=== PATIENT | male | born 1975 | race Caucasian/White ===

== ENCOUNTER → 2016-05-20 | Day surgery (SDC) | payer OTHER ==
[2016-05-16 14:37] VITALS: Ht 180.3 cm; Wt 95.5 kg
[~2016-05-20] VITALS: Ht 180.3 cm; Wt 95.5 kg
[~2016-05-20] MED LIST: ASPEC81 PO; ATOR-26 PO; CLR10 PO; FLUT0.15 NAE; LIDOCAINE HCL 2% 2 ML VIAL (20MG/ML) ONE; LISI-461 PO; MENT1GEL TOP; METO25TA56 PO; MIDAZOLAM HCL 1 MG/ML 2ML VIAL ONE; NAPR1TAB9 PO; ONDANSETRON INJ 2 MG/ML 2 ML VIAL ONE; PANT40TA PO; PROPOFOL IV EMULSION 10 MG/ML 20 ML VIAL IV ONE; RANI300T2 PO; SODIUM CHLORIDE 0.9% 500ML 500 ML IV ONE
--- NOTE | 2016-05-20 10:51 | Endo History and Physical ---
History & Physical Date of Service: May 20, 2016. Chief Complaint: GERD Referring Physician: DR. ABEL DIAZ History of Present Illness 41 yo CM who presents for EGD secondary to GERD. Past Surgical History Hx Cardiac Surgery: Yes (CARDIAC CATH NO STENTS 06/2013) Hx Internal Defibrillator: No Hx Pacemaker: No Hx Abdominal Surgery: No Hx of Implantable Prosthesis: No Hx Post-Op Nausea and Vomiting: No Hx Cancer Surgery: No Hx Thoracic Surgery: No Hx Orthopedic: No Hx Urinary Tract Surgery: No Family History None Social History Smoking Status: Never Smoker Hx Substance Use: No Hx Alcohol Use: No Allergies Coded Allergies: No Known Allergies (Verified , 05/20/16) Current Medications Reported Home Medications Medications Dose Route/Sig Max Daily Dose Days Date Category Flonase Allergy Relief (Fluticasone Propionate (Nasal)) 50 Mcg/Act Spr 2 Sprays ROLY PRN 05/16/16 Reported Claritin (Loratadine) 10 Mg Tab 10 Mg PO PRN 05/16/16 Reported Protonix (Pantoprazole Sodium) 40 Mg Tab 40 Mg PO QAM 05/16/16 Reported Zantac (Ranitidine HCl) 300 Mg Tab 300 Mg PO HS 05/16/16 Reported Aleve (Naproxen) 220 Mg Tab 440 Mg PO PRN 05/16/16 Reported Lopressor (Metoprolol Tartrate) 25 Mg Tab 12.5 Mg PO BID 05/16/16 Reported Zestril (Lisinopril) 10 Mg Tab 10 Mg PO QAM 05/16/16 Reported Lipitor (Atorvastatin Calcium) 80 Mg Tab 80 Mg PO HS 05/16/16 Reported Fast Freeze Pro Style The (Menthol (Topical Analgesic)) 3.5 % Gel 1 Dose TOP PRN 05/16/16 Reported Aspirin EC Low Dose (Aspirin) 81 Mg Ectab 81 Mg PO QAM 30 07/07/14 Rx Vital Signs Weight (Kilograms): 95.45 Height (Feet): 5 Height (Inches): 11 Date Time Temp Pulse Resp B/P Pulse Ox O2 Delivery O2 Flow Rate FiO2 05/20/16 10:15 36.7 61 16 132/79 99 Room Air Physical Exam General Appearance: WD/WN, no apparent distress Respiratory/Chest: Auscultation: breath sounds normal Cardiovascular: Heart Auscultation: RRR Abdomen: Bowel Sounds: normal Inspection & Palpation: soft, non-distended, no tenderness, guarding & rebound Assessment and Plan Assessment: 41 yo CM who presents for EGD secondary to GERD. Plan: Proceed with EGD.
--- NOTE | 2016-05-20 11:34 | Discharge Instructions ---
Endoscopy Patient Instructions Date / Procedure(s) Performed May 20, 2016. EGD Allergy Information Coded Allergies: No Known Allergies (Verified , 05/20/16) Discharge Date / Findings May 20, 2016. Gastritis s/p biopsies Mid-esophageal biopsies Medication Instructions Stopped Medication(s): ASPIRIN 05/20/16 OK to resume all medications today as prescribed. Reported Home Medications Medications Dose Route/Sig Max Daily Dose Days Date Category Flonase Allergy Relief (Fluticasone Propionate (Nasal)) 50 Mcg/Act Spr 2 Sprays ROLY PRN 05/16/16 Reported Claritin (Loratadine) 10 Mg Tab 10 Mg PO PRN 05/16/16 Reported Protonix (Pantoprazole Sodium) 40 Mg Tab 40 Mg PO QAM 05/16/16 Reported Zantac (Ranitidine HCl) 300 Mg Tab 300 Mg PO HS 05/16/16 Reported Aleve (Naproxen) 220 Mg Tab 440 Mg PO PRN 05/16/16 Reported Lopressor (Metoprolol Tartrate) 25 Mg Tab 12.5 Mg PO BID 05/16/16 Reported Zestril (Lisinopril) 10 Mg Tab 10 Mg PO QAM 05/16/16 Reported Lipitor (Atorvastatin Calcium) 80 Mg Tab 80 Mg PO HS 05/16/16 Reported Fast Freeze Pro Style The (Menthol (Topical Analgesic)) 3.5 % Gel 1 Dose TOP PRN 05/16/16 Reported Aspirin EC Low Dose (Aspirin) 81 Mg Ectab 81 Mg PO QAM 30 07/07/14 Rx Provider Instructions Activity Restrictions - No exercising or heavy lifting for 24 hours. - Do not drink alcohol the day of the procedure. - Do not drive a car or operate machinery until the day after the procedure. - Do not make any important decisions or sign important papers in 24 hours after the procedure. Following Day: - Return to full activity which may include returning to work/school. Diet Start your diet with liquids and light foods (jello, soup, juice, toast). Then eat your usual diet if not nauseated. Treatment For Common After Affects For mild abdominal pain, bloating, or excessive gas: - Rest - Eat lightly - Lie on right side Follow-Up Information Follow-up with DR. ABEL DIAZ as scheduled Anesthesia Information What You Should Know You have had a procedure that required some medicine to reduce anxiety and discomfort. This treatment is called moderate sedation. After receiving the treatment, you may be sleepy, but you will be able to breathe on your own. The effects of the treatment may last for several hours. Follow these instructions along with Activity/Diet recommendations noted above: * Do NOT do anything where dizziness or clumsiness would be dangerous. * Rest quietly at home today, then you can be up and about tomorrow. * Have a responsible person stay with you the rest of today. * You may have had an I.V. today. If so, you may take the dressing off later today. Recommendations Call your doctor if: * Trouble breathing * Continuous vomiting for more than 24 hours * Temperature above 101 degrees * Severe abdominal pain or bloating * Pain not relieved by pain medicine ordered * There is increased drainage or redness from any incision * A large amount of rectal bleeding greater than 2-3 tablespoons. (If you had a polyp/s removed or have hemorrhoids, a small amount of blood - from the rectum is to be expected.) * You have any unanswered questions or concerns. IN THE EVENT OF A SERIOUS EMERGENCY, GO TO THE NEAREST EMERGENCY ROOM Your discharge instructions were prepared by provider Suresh Oconnell. Patient Instructions Signature Page Eliazar Rudolph Patient (or Guardian) Signature/Date: I have read and understand the instructions given to me by my caregivers. Caregiver/RN/Doctor Signature/Date: The above-named patient and/or guardian has received patient instructions on this date. + Original Patient Signature Page (only) stays with chart. Please make copy for patient.
--- NOTE | 2016-05-20 11:34 | GI REPORT ---
Procedure Date: 05/20/2016 11:03 AM Procedure: Upper GI endoscopy Indications: Gastro-esophageal reflux disease Medicines: Monitored Anesthesia Care Complications: No immediate complications. Estimated Blood Loss: Estimated blood loss: none. Procedure: Pre-Anesthesia Assessment: - Prior to the procedure, a History and Physical was performed, and patient medications and allergies were reviewed. The patient's tolerance of previous anesthesia was also reviewed. The risks and benefits of the procedure and the sedation options and risks were discussed with the patient. All questions were answered, and informed consent was obtained. Prior Anticoagulants: The patient has taken aspirin, last dose was day of procedure. ASA Grade Assessment: II - A patient with mild systemic disease. After reviewing the risks and benefits, the patient was deemed in satisfactory condition to undergo the procedure. After obtaining informed consent, the endoscope was passed under direct vision. Throughout the procedure, the patient's blood pressure, pulse, and oxygen saturations were monitored continuously. The scope was introduced through the mouth, and advanced to the second part of duodenum. The upper GI endoscopy was accomplished without difficulty. The patient tolerated the procedure well. Findings: The examined esophagus was normal. Biopsies were taken with a cold forceps for histology. Localized mild inflammation characterized by erythema was found in the gastric antrum. Biopsies were taken with a cold forceps for histology. The examined duodenum was normal. Impression: - Normal esophagus. Biopsied. - Gastritis. Biopsied. - Normal examined duodenum. Recommendation: - Resume previous diet. - Continue present medications. - Await pathology results. - Return to GI office as previously scheduled. Suresh Oconnell DO 05/20/2016 11:32:36 AM This report has been signed electronically. Note Initiated On: 05/20/2016 11:03 AM
--- NOTE | 2016-05-20 11:52 | Anesthesiology Progress Note ---
Anesthesia Post Op Note Date & Time May 20, 2016 at 11:51 Vital Signs Pain Intensity: 2 Vital Signs Past 12 Hours Date Time Temp Pulse Resp B/P Pulse Ox O2 Delivery O2 Flow Rate FiO2 05/20/16 11:38 62 20 99/51 99 Room Air 05/20/16 10:15 36.7 61 16 132/79 99 Room Air Notes Mental Status: alert / awake / arousable, participated in evaluation Pt Amnestic to Procedure: Yes Nausea / Vomiting: adequately controlled Pain: adequately controlled Airway Patency, RR, SpO2: stable & adequate BP & HR: stable & adequate Hydration State: stable & adequate Anesthetic Complications: no major complications apparent
[2016-05-20 12:11] VITALS: BP 128/82; PULSE 65; O2SAT 98
== END | disposition home or self-care (01) ==
LOC: C.GI 09:49
PROVIDERS: ATTEND Internal Medicine
DX: K29.00 Acute gastritis without bleeding (principal); K21.9 Gastro-esophageal reflux disease without esophagitis

== ENCOUNTER → 2016-07-03 | Outpatient (CLI) | payer OTHER ==
[~2016-07-03] MED LIST changes: -LIDOCAINE HCL 2% 2 ML VIAL (20MG/ML) ONE; -MIDAZOLAM HCL 1 MG/ML 2ML VIAL ONE; -ONDANSETRON INJ 2 MG/ML 2 ML VIAL ONE; -PROPOFOL IV EMULSION 10 MG/ML 20 ML VIAL IV ONE; -SODIUM CHLORIDE 0.9% 500ML 500 ML IV ONE
[2016-07-03 09:56] LABS: ALT/SGPT 26 U/L (12-78); AST/SGOT 16 U/L (15-37); BLOOD UREA NITROGEN 18 mg/dl (7-18); BUN/CREATININE RATIO 16.6 (10-20); CALCIUM 9.1 mg/dl (8.5-10.1); CARBON DIOXIDE 29 mmol/L (21-32); CHLORIDE 105 mmol/L (98-107); GLUCOSE 91 mg/dl (70-99); SODIUM 141 mmol/L (136-145)
[2016-07-03 10:00] LABS: ALB/GLOB RATIO 1.3 (0.9-2); ALKALINE PHOSPHATASE 102 U/L (45-117); CHOLESTEROL 126 mg/dl (0-200); CHOLESTEROL/HDL RATIO 2.3; HDL CHOLESTEROL 55 mg/dl; LDL CHOLESTEROL CALCULATED 61 mg/dl; TRIGLYCERIDES 52 mg/dl (0-150); VERY LOW DENSITY LIPOPROT CALC 10 mg/dl
== END | disposition home or self-care (01) ==
LOC: C.LAB1850 07:48
PROVIDERS: ATTEND Family Medicine
DX: E78.00 Pure hypercholesterolemia, unspecified (principal); I10 Essential (primary) hypertension

== ENCOUNTER → 2016-07-31 | Outpatient (CLI) | payer OTHER ==
--- NOTE | 2016-07-31 13:41 | DIAGNOSTIC IMAGING REPORT ---
NUCLEAR GASTRIC EMPTYING STUDY CLINICAL HISTORY: Epigastric abdominal pain. Chronic gastroesophageal reflux. COMPARISON STUDY: No priors. TECHNIQUE: Following the oral administration of 1.085 mCi of technetium 99m sulfur colloid in egg sandwich and 8 ounces of water, static abdominal images are obtained anteriorly and posteriorly at 0 minutes, 1 hour, 2 hour, and 4 hour time intervals. Gastric emptying was calculated utilizing the geometric mean method. FINDINGS: There is approximately 65% activity remaining at the 1 hour time interval, 25% remaining at the 2 hour time interval (normal is less than 60%), and 4% activity remaining at the 4 hour time interval (normal is less than 10%). IMPRESSION: Findings are consistent with normal gastric emptying for solids. Electronically signed by: Jayson Novoa M.D. 07/31/2016 1:40 PM Dictated Date/Time: 07/31/2016 1:39 PM
== END | disposition home or self-care (01) ==
LOC: C.NUCL 08:19
PROVIDERS: ATTEND Physician Assistant
DX: K21.9 Gastro-esophageal reflux disease without esophagitis (principal); R10.13 Epigastric pain

== ENCOUNTER → 2016-08-13 | Outpatient (CLI) | payer OTHER ==
--- NOTE | 2016-08-13 10:06 | DIAGNOSTIC IMAGING REPORT ---
ABDOMINAL ULTRASOUND, RIGHT UPPER QUADRANT HISTORY: Right upper quadrant abdominal pain. COMPARISON: None. FINDINGS: Liver is sonographically normal. There is no biliary ductal dilatation. No gallstones are present. The pancreatic body is normal. The head and tail are partially obscured. IMPRESSION: No significant abnormality identified within the right upper quadrant. Electronically signed by: David Brizuela M.D. 08/13/2016 10:05 AM Dictated Date/Time: 08/13/2016 9:59 AM
[2016-08-13 10:30] LABS: BASO % 0.5 %; BASO ABS # 0.03 K/uL (0-0.2); COMPLETE YES; HEMATOCRIT 43.1 % (42-52); LYMPH % 27.1 %; LYMPH ABS # 1.48 K/uL (1.2-3.4); MEAN CELL VOLUME 83.9 fL (80-100); MEAN CORPUSCULAR HEMOGLOBIN 29.2 pg (25-34); MEAN CORPUSCULAR HGB CONC 34.8 g/dl (32-36); MEAN PLATELET VOLUME 9.8 fL (7.4-10.4); MONO % 6.9 %; NEUT % 63.5 %; PLATELET COUNT 169 K/uL (130-400); RED BLOOD COUNT 5.14 M/uL (4.7-6.1); WHITE BLOOD COUNT 5.47 K/uL (4.8-10.8)
[2016-08-13 10:46] LABS: BLOOD UREA NITROGEN 22 mg/dl (7-18); CREATININE 0.95 mg/dl (0.60-1.40); GLUCOSE 97 mg/dl (70-99)
[2016-08-13 10:47] LABS: ALT/SGPT 31 U/L (12-78); AMYLASE 46 U/L (25-115); AST/SGOT 14 U/L (15-37); BUN/CREATININE RATIO 23.6 (10-20); CARBON DIOXIDE 31 mmol/L (21-32); CHLORIDE 106 mmol/L (98-107); POTASSIUM 4.2 mmol/L (3.5-5.1); SODIUM 142 mmol/L (136-145)
[2016-08-13 10:51] LABS: ALB/GLOB RATIO 1.1 (0.9-2); ALKALINE PHOSPHATASE 104 U/L (45-117); C-REACTIVE PROTEIN < 0.29 mg/dl (0-0.29)
[2016-08-16 03:35] LABS: IGA SERUM 152 mg/dL (81-463); TIS TRANS IGA 1 U/mL (<4)
== END | disposition home or self-care (01) ==
LOC: C.ULTRBC 08:44
PROVIDERS: ATTEND Physician Assistant
DX: R10.13 Epigastric pain (principal)

== ENCOUNTER → 2016-08-27 | Outpatient (CLI) | payer OTHER ==
[~2016-08-27] MED LIST changes: +SINCALIDE INJ 1.9 MCG in SODIUM CHLORIDE 0.9% 100ML 100 ML IV ONE
--- NOTE | 2016-08-27 12:47 | DIAGNOSTIC IMAGING REPORT ---
NUCLEAR MEDICINE HEPATOBILIARY STUDY WITH EJECTION FRACTION ANALYSIS CLINICAL HISTORY: Epigastric abdominal pain COMPARISON STUDY: Biliary ultrasound dated 08/13/2016 FINDINGS: The patient was injected with 5.5 mCi of technetium 99m Choletec. Sequential anterior images were acquired. Hepatic excretion appeared unremarkable. There is normal patches of activity into small bowel. The gallbladder was first visualized on the 10 minute image. At 1 hour, the patient was administered 1.9 mcg of sincalide utilizing a 30 minute infusion. The gallbladder ejection fraction is normal measuring 59%. IMPRESSION: Normal study. No evidence of cystic duct obstruction. Normal gallbladder ejection fraction of 59%. Electronically signed by: Don Finley M.D. 08/27/2016 12:44 PM Dictated Date/Time: 08/27/2016 12:43 PM
== END | disposition home or self-care (01) ==
LOC: C.NUCL 09:51
PROVIDERS: ATTEND Physician Assistant
DX: R10.13 Epigastric pain (principal)

== ENCOUNTER → 2017-08-07 | Outpatient (CLI) | payer OTHER ==
[~2017-08-07] MED LIST changes: -SINCALIDE INJ 1.9 MCG in SODIUM CHLORIDE 0.9% 100ML 100 ML IV ONE
--- NOTE | 2017-08-07 09:46 | DIAGNOSTIC IMAGING REPORT ---
MRI LUMBAR SPINE W/O CONTRAST CLINICAL HISTORY: M54.5 Intervertebral disc [id number] LOW BACK PAIN. LEFT LEG RADICULOPATHY. REMOTE HISTORY OF T12 FRACTURE. TECHNIQUE: Sagittal and axial T1, T2 and STIR images were obtained. COMPARISON STUDY: No previous studies for comparison. OBSERVATIONS: There are no areas of marrow replacement suspicious for neoplasm. There is an old minor superior endplate T12 compression deformity. Degenerative endplate signal changes are present the L5-S1 level. L1-2: No disc protrusions or extrusions. No evidence of spinal canal or neural foraminal compromise. L2-3: No disc protrusions or extrusions. No evidence of spinal canal or neural foraminal compromise. L3-4: There is a mild circumferential disc bulge. There is no significant spinal or foraminal stenosis. L4-5: There is a left lateral disc bulge.. No evidence of spinal canal or neural foraminal compromise. L5-S1: There is marked disc degeneration. There is a circumferential disc bulge. There is minimal bilateral subforaminal narrowing. The conus medullaris and cauda equina appear normal. IMPRESSION: 1. Mild multilevel spondylitic changes 2. No focal disc herniations identified 3. No evidence of spinal stenosis 4. Minimal bilateral L5-S1 foraminal narrowing Electronically signed by: Don Finley M.D. 08/07/2017 9:44 AM Dictated Date/Time: 08/07/2017 9:40 AM
== END | disposition home or self-care (01) ==
LOC: C.MRI 08:34
PROVIDERS: ATTEND Internal Medicine
DX: M54.5 Low back pain (principal)

== ENCOUNTER 2017-08-19 13:17 | Emergency (ER) | payer OTHER ==
[~2017-08-19] VITALS: Ht 177.8 cm; Wt 96.8 kg
[~2017-08-19 13:17] MED LIST changes: -ASPEC81 PO; +ASPI-320 PO
[2017-08-19 13:35] VITALS: TEMP 36.7; Ht 177.8 cm; Wt 96.8 kg
[2017-08-19] MEDS ORDERED: XYLOCAINE 1%/SOD BICARB 20 ML VIAL INFIL ONE (14:15)
[2017-08-19] MEDS ORDERED: CEPH500C2 PO (14:42)
[2017-08-19] MEDS: DIPHTHERIA/TETANUS/PERTUSSIS 0.5 ML SYR/VIAL IM. ONE ×2 (15:20→15:22)
[2017-08-19 15:27] VITALS: BP 128/78; PULSE 64; O2SAT 99
[2017-08-19] MEDS ORDERED: DIPHTHERIA/TETANUS/PERTUSSIS 0.5 ML SYR/VIAL IM. ONE (15:30)
--- NOTE | 2017-08-20 07:03 | EMERGENCY ROOM VISIT NOTE ---
ED Visit Note First contact with patient: 13:48 Chief Complaint: Head injury. History of Present Illness: Mr. Rudolph is a 24-year-old [place] male who ambulates into the ED complaining of a head injury. Patient reports a small branch fell out of a tree and struck him in the head. He reports at the time of the injury he did not have a loss of consciousness and since the injury he has having no signs of head injury including headache, abnormal neurological symptoms, vomiting. The branch he reports was small in size but could not give me an exact measurement. Associated with the injury he did sustain a laceration to the right parietal area. Associated with that he reports she has a mild stinging pain in the area the laceration. He rates his discomfort 2/10. His pain is nonradiating. His pain worsens with palpation. He has not identified any alleviating factors related to the pain. He has not taken medication for pain prior to arrival at the hospital. He denies any associated symptoms. Additionally just prior to discharge patient reports he was going to see his primary care provider today but was missed his appointment and he requested that I look at his forearms. He reports over the last couple of days he has noted increasing redness over the anterior aspect of both forearms with prominence on the right. He denies any recent trauma to the area but does reports that he was shaving sheep the other day. He reports both of these areas are tender to palpation and are warm to the touch. He reports there were both initially areas were minimally erythematous but has gotten increasingly erythematous and has grown in size. He denies any associated symptoms with these areas of erythema including pain, fevers, elbow pain, wrist pain, arm weakness/numbness/tingling. Review of Systems: As noted above in history of present illness. Past Medical History: GERD, hypertension, kidney stones, dyslipidemia. Current Medications: Medications Dose Route/Sig Max Daily Dose Days Date Category Flonase Allergy Relief (Fluticasone Propionate (Nasal)) 50 Mcg/Act Spr 2 Sprays ROLY PRN 05/16/16 Reported Claritin (Loratadine) 10 Mg Tab 10 Mg PO PRN 05/16/16 Reported Protonix (Pantoprazole Sodium) 40 Mg Tab 40 Mg PO QAM 05/16/16 Reported Zantac (Ranitidine HCl) 300 Mg Tab 300 Mg PO HS 05/16/16 Reported Aleve (Naproxen) 220 Mg Tab 440 Mg PO PRN 05/16/16 Reported Lopressor (Metoprolol Tartrate) 25 Mg Tab 12.5 Mg PO BID 05/16/16 Reported Zestril (Lisinopril) 10 Mg Tab 10 Mg PO QAM 05/16/16 Reported Lipitor (Atorvastatin Calcium) 80 Mg Tab 80 Mg PO HS 05/16/16 Reported Fast Freeze Pro Style The (Menthol (Topical Analgesic)) 3.5 % Gel 1 Dose TOP PRN 05/16/16 Reported Aspirin EC Low Dose (Aspirin) 81 Mg Ectab 81 Mg PO QAM 30 07/07/14 Rx Allergies to Medications: Patient denies. Social History: Patient is currently employed; he feels safe in his home environment; he denies tobacco and alcohol use. Tetanus Immunization Status: Patient reports greater than 10 years Physical Examination: Vital Signs: Date Time Temp Pulse Resp B/P (MAP) Pulse Ox O2 Delivery O2 Flow Rate FiO2 08/19/17 15:27 64 20 128/78 99 08/19/17 14:41 69 18 131/74 100 Room Air 08/19/17 13:35 36.7 74 20 143/99 98 Room Air GENERAL: 42-year-old male in no acute distress, nontoxic-appearing, afebrile and hemodynamically stable. NEUROLOGICAL: Awake, alert and oriented to person, place and time. Answering questions appropriately and following commands. Normal gait. Good hand eye coordination. Romberg test negative. Pronator drift test negative. Cranial nerves II through XII grossly intact. Good short-term and long-term recall. SKIN: Warm, dry and pink. Scalp: 2.7 cm full-thickness laceration over the right parietal area. Left Upper Extremity: There is an area of mild erythema with minimal edema over the anterior forearm measuring approximately 14-15 cm consistent with a mild cellulitis. The area is is minimally warm to the touch. There is no open soft tissue injuries. No lymphangitis. Right Upper Extremity: There and it is an area of moderate erythema with moderate swelling over the anterior forearm measuring approximately 20 cm consistent with a moderate cellulitis. This area is warm to the touch. I do not appreciate any open soft tissue injuries. There is no lymphangitis or drainage from the wound there are no palpable fluid collections under the skin. HEENT: Normocephalic. Skull: Soft tissue injury as noted above. There is mild tenderness over his laceration but I do not appreciate any bony deformity or crepitus. There is no raccoons signs or cardenas signs. There is no drainage from the ears of the nostril; there is no hemotympanum. Face: No evidence of soft tissue injury. PERRLA. EOMI without nystagmus. Sclera white and conjunctiva pink. No malocclusion. Airway is patent. No intraoral trauma. Speech is normal and clear. Trachea midline. No jugular venous distention. BACK: No tenderness over the bony cervical and thoracic spine. Full range of motion of the cervical spine peer THORAX: Lungs sounds are clear to auscultation and equal bilaterally with symmetrical chest wall. UPPER: EXTREMITIES: No gross bony deformities. No tenderness in the shoulders, elbows, wrists or hands. Soft tissue cellulitis as noted above. Full range of motion of the elbow and wrist against resistance. Distal pulses, capillary refill and intact sensation to light touch throughout the extremities. No axillary lymphadenopathy. ED Course: Patient is assessed as noted above. Patient's medication list was reviewed. Patient was offered pain medication and refused. Patient was given an Adacel booster. Wound Repair: Complexity: Basic Verbal consent was obtained after the risks and benefits were explained. The skin was prepped with betadine and a sterile field set. Wound edges of the wound was anesthetized with 3.2 ml buffered 1% lidocaine. The wound was explored for foreign bodies and none found. Copious irrigation was performed using sterile saline. With direct pressure the bleeding subsided. Debridement was not performed. The wound edges were approximated using 6 gin. Hemostasis and excellent approximation was achieved. Antibacterial ointment applied. No complications and the patient tolerated the procedure well. Patient was educated about tonight's findings and instructed on his treatment plan; he verbalizes understanding and agreement with this plan. Clinical Impression: Laceration of the to the right parietal scalp. Bilateral forearm cellulitis. Disposition: Patient discharged home in stable condition; prior to departure he was reassessed and subjectively reported he was pain-free. Plan: Laceration Comfort measures, wound care, and signs of infection were discussed with the patient. Patient was educated on signs of head injury. Patient was encouraged to follow-up with primary care provider or return to emergency department for signs of infection and/or staple removal in 10-12 days. Patient was encouraged return to the ED for signs of head injury or any new/ concerning symptoms. Forearm cellulitis Patient was prescribed Keflex and instructed on its use. Patient was encouraged to follow-up with his primary care provider for recheck in 36-48 hours. Patient was encouraged to return to emergency department for increasing redness/ swelling, red streaking, fevers or any new/concerning symptoms.
== END 2017-08-19 15:29 | disposition home or self-care (01) ==
LOC: C.EDB 13:19 → C.EDD 15:29
DX: S01.01XA Laceration without foreign body of scalp, initial encounter (principal); W20.8XXA Other cause of strike by thrown, projected or falling object, initial encounter; L03.113 Cellulitis of right upper limb; L03.114 Cellulitis of left upper limb; K21.9 Gastro-esophageal reflux disease without esophagitis; I10 Essential (primary) hypertension; Z87.442 Personal history of urinary calculi; E78.5 Hyperlipidemia, unspecified; Z23 Encounter for immunization

== ENCOUNTER → 2017-09-02 | Outpatient (CLI) | payer OTHER ==
[2017-09-02 12:43] LABS: ALBUMIN 4.2 gm/dl (3.4-5.0); ALT/SGPT 34 U/L (12-78); AST/SGOT 15 U/L (15-37); BLOOD UREA NITROGEN 22 mg/dl (7-18); CARBON DIOXIDE 31 mmol/L (21-32); CHOLESTEROL 131 mg/dl (0-200); CREATININE 1.09 mg/dl (0.60-1.40); GLUCOSE 94 mg/dl (70-99); POTASSIUM 4.3 mmol/L (3.5-5.1); SODIUM 138 mmol/L (136-145)
[2017-09-02 12:47] LABS: ALKALINE PHOSPHATASE 100 U/L (45-117); LDL CHOLESTEROL CALCULATED 74 mg/dl; TOTAL PROTEIN 7.5 gm/dl (6.4-8.2)
== END | disposition home or self-care (01) ==
LOC: C.LABBFT 09:26
PROVIDERS: ATTEND Internal Medicine
DX: Z00.00 Encounter for general adult medical examination without abnormal findings (principal); E78.00 Pure hypercholesterolemia, unspecified; I10 Essential (primary) hypertension

== ENCOUNTER 2020-03-25 09:24 | Observation (INO) ==
--- NOTE | 2020-03-25 10:13 | Emergency Department Note ---
Impression & Plan Nasal septal abscess, Sinus headache, Fever ED Provider Note NAME: KALEB MARTINEZ JR AGE: 44 SEX: M ARRIVES VIA: Walk-In INFORMANT: Patient, ED PROVIDER(S): Dennis Henderson MD CHIEF COMPLAINT: Headache, fever, bloody nasal discharge. PLAN: Disposition: Admit MEDICAL DECISION MAKING: The patient is a pleasant 44-year-old gentleman with a past medical history of hypertension who presents emergency department for evaluation of fevers and headache that has been evolving since Friday after having stents removed from a recent sinus surgery with Dr. Vega 2 weeks ago. He reports Friday he had stents removed but developed worsening headache with congestion and fevers and was started on Augmentin and he has taken 4 doses thus far. He reports his headache persisted and he had a fever this morning and so contacted his surgeon and was referred to emergency department for evaluation. He reports he has intermittent serosanguineous discharge and sometimes more ash[place] blood that stops without compression and only dabbing with a paper towel. He reports some mild nausea. He denies cough, chest pain, diarrhea, urinary symptoms. He denies any known contacts with individuals diagnosed with COVID-19. He reports he has been remaining at home and has not had any COVID-19 exposures. In particular he reports he was maintaining quarantine prior to his surgery 2 weeks ago and since then and did have a negative COVID-19 test performed before his surgery and prior to his Friday evaluation. On arrival patient uncomfortable no acute distress, afebrile with stable vital signs. He has mild serous discharge with intermittent serosanguineous discharge from his nose. No focal neuro deficits. He has mild frontal and maxillary sinus discomfort. EOMI. No nystamgus. PEARRL. Lungs are clear. Abdomen is benign. WBC, H/H and platelets within normal limits. Chemistry without acidosis. Electrolytes and LFTs unremarkable. Lactate within normal limits. CT of the head negative for acute process. CT of the sinuses demonstrates large peripheral enhancing fluid collection in the mid nasal septum 3.6 x 2.1 cm which could be consistent with abscess versus hematoma. I did review the findings with the patient's ENT surgeon, Dr. Vega, who reviewed the images and evaluated the patient at the bedside and is concerned for abscess given timing since surgery and fevers. Agrees with IV ABX. Given Unasyn. Plan for OR for drainage and recommends to admit for observation overnight. Thus, case was discussed with Dr. Davis, [facility] [place], who will evaluate the patient for admission following OR. Triage Nursing notes reviewed and agree them. Prior medical records reviewed Vital Signs: reviewed and remarkable for no significant abnormalities Differential diagnosis: Viral syndrome, otitis, pharyngitis, pneumonia, influenza, meningitis, urinary tract infection, sepsis, bacteremia, as well as other pathologies. ER treatment provided: See below. Diagnostics interpreted by me: ECG: NSR, 74 bpm, no ectopy, no overt ST elevation or depression, QTC 415, QRS 90. Cardiac Monitoring: An order for continuous cardiac monitoring was placed and demonstrated NSR, 78 bpm, no ectopy, no overt ST elevation or depression. Laboratory studies: See below Imaging studies: HEAD CT NONCONTRAST CT DOSE: HISTORY: Headache. Fever, 2 wks s/p sinus surgery TECHNIQUE: Multiaxial CT images of the head were performed without the use of intravenous contrast. Automated exposure control was utilized for this study. A dose lowering technique was utilized adhering to the principles of ALARA. Comparison: Sinus CT 03/25/2020. Findings: Please refer to the same day sinus CT for further evaluation of the sinus abnormality. The calvarium and skull base are intact. The ventricles and sulci are within normal limits. There is no mass, hematoma, midline shift, or acute infarct. Impression: No acute intracranial abnormality. Please refer to the same day sinus CT for further evaluation of the sinus abnormalities. CT sinus w con HISTORY: Headache, fever, 2 wks s/p sinus surgery TECHNIQUE: Multiaxial CT images of the sinuses were performed and reformatted in the sagittal and coronal plane following the use of intravenous contrast. COMPARISON STUDY: Sinus CT 07/15/2019. FINDINGS: Near complete opacification of the right maxillary sinus and partial opacification of the left maxillary sinus with mucosal thickening and fluid levels. There is near complete opacification of the nasal cavity and moderate mucosal thickening of the ethmoid air cells with near complete opacification. Moderate mucosal thickening within the sphenoid sinuses. There is a peripheral enhancing low density collection at the mid aspect of the nasal septum. This is best seen image 168 and measures 3.6 x 2.1 cm. This could represent an abscess or less likely a septal hematoma. The orbits and pterygopalatine fossa are within normal limits. The nasal septum is fractured posteriorly. The mid nasal septum is absent and completely replaced by the peripheral enhancing fluid collection. This could be due to postoperative change or erosion. The mastoid air cells are clear. Soft tissue swelling within the nose. IMPRESSION: 1. A large peripheral enhancing fluid collection within the mid nasal septum measuring 3.6 x 2.1 cm. This favors an abscess. A septal hematoma could also have a similar appearance. 2. Acute pansinusitis as described above. 3. The mid nasal septum is absent which could be postsurgical or due to erosion from the fluid collection. 4. Fracture through the posterior nasal septum. Consultation(s): Dr. Vega, ENT Dr. Davis, [facility] [place]. HPI: The patient is a pleasant 44-year-old gentleman with a past medical history of hypertension who presents emergency department for evaluation of fevers and headache that has been evolving since Friday after having stents removed from a recent sinus surgery with Dr. Vega 2 weeks ago. He reports Friday he had stents removed but developed worsening headache with congestion and fevers and was started on Augmentin and he has taken 4 doses thus far. He reports his headache persisted and he had a fever this morning and so contacted his surgeon and was referred to emergency department for evaluation. He reports he has intermittent serosanguineous discharge and sometimes more ash[place] blood that stops without compression and only dabbing with a paper towel. He reports some mild nausea. He denies cough, chest pain, diarrhea, urinary symptoms. He denies any known contacts with individuals diagnosed with COVID-19. He reports he has been remaining at home and has not had any COVID-19 exposures. In particular he reports he was maintaining quarantine prior to his surgery 2 weeks ago and since then and did have a negative COVID-19 test performed before his surgery and prior to his Friday evaluation. ROS: See above HPI for pertinent positives & negatives. A total of 10 systems reviewed and were otherwise negative. PAST MEDICAL HISTORY:See Below PAST SURGICAL HISTORY:See Below FAMILY HISTORY:See Below SOCIAL HISTORY:See Below HOME MEDICATIONS:See Below ALLERGIES:See Below VITALS:See Below PHYSICAL EXAMINATION: GENERAL: Awake, alert, uncomfortable-appearing, in no distress HENT: Normocephalic, atraumatic. Oropharynx with dry mucous membranes and otherwise unremarkable. Mild frontal and maxillary sinus discomfort bilaterally. There is fullness of the mid nasal septum right greater than left with scant serosanguinous drainage. EYES: Normal conjunctiva. Sclera non-icteric. EOMI. No nystamgus. PEARRL. NECK: Supple. No nuchal rigidity. FROM. No JVD. RESPIRATORY: Clear to auscultation. CARDIAC: Regular rate, normal rhythm. Extremities warm and well perfused. Pulses equal. ABDOMEN: Soft, non-distended. No tenderness to palpation. No rebound or guarding. No masses. RECTAL: Deferred. MUSCULOSKELETAL: Chest examination reveals no tenderness. The back is symmetrical on inspection without obvious abnormality. There is no CVA tenderness to palpation. No joint edema. LOWER EXTREMITIES: Calves are equal size bilaterally and non-tender. No edema. No discoloration. NEURO: Normal sensorium. No sensory or motor deficits noted. 5/5 strength and SILT x 4 extremities. Cerebellar function intact including [id number], alternating palms, [id number]. SKIN: No rash or jaundice noted. Dennis Henderson MD Past Med/Surg History Medical History Arthritis CAD (coronary artery disease) Degenerative disc disease Gastroesophageal reflux Hyperlipidemia Hypertension Otalgia of both ears Surgical History History of cardiac cath NO STENTS History of esophagogastroduodenoscopy (EGD) [place] teeth removed Family History Father Coronary heart disease Heart disease Hyperlipidemia Brother Coronary heart disease Hyperlipidemia Grandmother No problems noted. Mother Heart disease Diabetes Other Hypertension Denies family history of Prostate cancer Colorectal cancer Social History Smoking Status: Never smoker Second Hand Exposure: No; Do You Dip or Chew Tobacco: No; Hx Alcohol Use: No Hx Substance Use: No Preferred Language: Guinean Communication Ability: Effective Visual Impairment: No Limitations Hearing Ability: Normal Foreman Or Supervisor And Operator Required: No Beliefs That Will Affect Care: None marital status: Single Current Living Situation: Family Current Living Situation Comment: 2 sisters. current occupational status: employed Other Information That Helps Us Care for You: No Feels Safe at Home: Yes Childhood Exposure to Second-Hand Smoke: No caffeine: Yes during the past year weight has: remained stable Dental Care, Regularly: Yes Physical Activity Frequency: Daily Physical Activity Frequency Comment: self employed, [employer] Seatbelt Use: always Assistive Devices: Glasses Allergies Allergies Allergy/AdvReac Type Severity Reaction Status Date / Time meloxicam Allergy Severe severe rash Verified 03/25/20 10:51 Home Meds Home Medications Medication Instructions Recorded Confirmed aspirin 81 mg tablet,delayed 81 mg PO QAM 01/29/18 03/25/20 release naproxen sodium 220 mg capsule 440 mg PO BID PRN cap 01/29/18 03/25/20 famotidine 20 mg tablet 20 mg PO HS tab 07/06/19 03/25/20 atorvastatin [Lipitor] 80 mg PO HS 03/25/20 03/25/20 lisinopril 10 mg PO QAM 03/25/20 03/25/20 loratadine [Claritin] 10 mg PO QAM 03/25/20 03/25/20 Previous Rx's Medication Instructions Recorded cyclobenzaprine 5 mg tablet See Rx Instructions PO TID PRN #30 02/23/19 tab metoprolol tartrate 25 mg tablet 12.5 mg PO BID #90 tab 11/23/19 omeprazole 20 mg tablet,delayed 20 mg PO BID #60 tab 12/13/19 release ipratropium bromide 0.03 % nasal 2 spray INTRANASAL BID #30 ml 01/18/20 spray hydrocodone-acetaminophen [[place]] 1 tab PO Q6H PRN #20 tab 03/09/20 amoxicillin 875 mg-potassium 1 tab PO BID #20 tab 03/23/20 clavulanate 125 mg tablet Results & Data (ED) Vital Signs Vital Signs - 24 hr 03/25/20 09:27 03/25/20 10:20 03/25/20 11:24 Temperature 36.7 C Temperature Source Oral Pulse Rate 82 Pulse Rate [Apical] 80 Pulse Rate from SpO2 Sensor Pulse Rhythm [Apical] Regular Pulse Strength [Apical] Respiratory Rate 20 18 Respiratory Effort / Characteristics Non-Labored Non-Labored Spontaneous Non-Labored Respiratory Depth Normal Blood Pressure 161/96 H Blood Pressure [Left Arm] Blood Pressure [Right Arm] 131/87 Blood Pressure Mean 117 Blood Pressure Mean [Left Arm] Blood Pressure Mean [Right Arm] 101 Blood Pressure Position [Left Arm] Pulse Oximetry 97 96 Oxygen Delivery Method Room Air Room Air Oxygen Flow Rate Sepsis Recent Fever Within 48 Hours No Sepsis New/Unexplained Change in Mental Status N/A Sepsis Action Taken by Nursing No Action Required 03/25/20 12:00 03/25/20 12:30 03/25/20 13:30 Temperature Temperature Source Pulse Rate 69 69 82 Pulse Rate [Apical] Pulse Rate from SpO2 Sensor 69 72 Pulse Rhythm [Apical] Pulse Strength [Apical] Respiratory Rate 17 14 15 Respiratory Effort / Characteristics Respiratory Depth Blood Pressure 137/89 131/91 130/82 Blood Pressure [Left Arm] Blood Pressure [Right Arm] Blood Pressure Mean 100 97 96 Blood Pressure Mean [Left Arm] Blood Pressure Mean [Right Arm] Blood Pressure Position [Left Arm] Pulse Oximetry 97 99 Oxygen Delivery Method Oxygen Flow Rate Sepsis Recent Fever Within 48 Hours Sepsis New/Unexplained Change in Mental Status Sepsis Action Taken by Nursing 03/25/20 14:00 03/25/20 15:04 03/25/20 17:12 Temperature 36.3 C L Temperature Source Temporal Artery Scan Pulse Rate 76 Pulse Rate [Apical] 78 89 Pulse Rate from SpO2 Sensor Pulse Rhythm [Apical] Regular Pulse Strength [Apical] Normal Respiratory Rate 14 20 18 Respiratory Effort / Characteristics Non-Labored Spontaneous Respiratory Depth Normal Blood Pressure 129/88 Blood Pressure [Left Arm] 157/91 H Blood Pressure [Right Arm] 139/82 Blood Pressure Mean 99 Blood Pressure Mean [Left Arm] 113 Blood Pressure Mean [Right Arm] 101 Blood Pressure Position [Left Arm] Lying Pulse Oximetry 98 95 96 Oxygen Delivery Method Nasal Cannula Oxygen Flow Rate 3 Sepsis Recent Fever Within 48 Hours Sepsis New/Unexplained Change in Mental Status Sepsis Action Taken by Nursing 03/25/20 17:20 03/25/20 17:30 Temperature Temperature Source Pulse Rate Pulse Rate [Apical] 85 91 H Pulse Rate from SpO2 Sensor Pulse Rhythm [Apical] Regular Regular Pulse Strength [Apical] Normal Normal Respiratory Rate 19 15 Respiratory Effort / Characteristics Non-Labored Spontaneous Non-Labored Spontaneous Respiratory Depth Normal Normal Blood Pressure Blood Pressure [Left Arm] 156/97 H 156/97 H Blood Pressure [Right Arm] Blood Pressure Mean Blood Pressure Mean [Left Arm] 116 116 Blood Pressure Mean [Right Arm] Blood Pressure Position [Left Arm] Lying Lying Pulse Oximetry 100 100 Oxygen Delivery Method Nasal Cannula Nasal Cannula Oxygen Flow Rate 2 2 Sepsis Recent Fever Within 48 Hours Sepsis New/Unexplained Change in Mental Status Sepsis Action Taken by Nursing Laboratory Data Attestation: I reviewed the patient's lab results. Result diagrams: 03/25/20 11:29 03/25/20 11: Lab Results 03/25/20 03/25/20 03/25/20 Range/Units 11:29 11:29 11:29 WBC 7.02 (4.8-10.8) K/uL RBC 5.01 (4.7-6.1) M/uL Hgb 14.6 (14.0-18.0) g/dL Hct 42.8 (42-52) % MCV 85.4 (80-100) fL MCH 29.1 (25-34) pg MCHC 34.1 (32-36) g/dL RDW Std Deviation 43.3 (36.4-46.3) fL RDW Coeff of Dilan 13.8 (11.5-14.5) % Plt Count 179 (130-400) K/uL MPV 9.0 (7.4-10.4) fL Immature Gran % (Auto) 0.1 % Neut % (Auto) 73.1 % Lymph % (Auto) 16.4 % [place] % (Auto) 9.5 % Eos % (Auto) 0.6 % Baso % (Auto) 0.3 % Neut # (Auto) 5.13 (1.4-6.5) K/uL Lymph # (Auto) 1.15 L (1.2-3.4) K/uL [place] # (Auto) 0.67 H (0.11-0.59) K/uL Eos # (Auto) 0.04 (0-0.5) K/uL Baso # (Auto) 0.02 (0-0.2) K/uL Immature Gran # (Auto) 0.01 (0.00-0.02) K/uL PT 11.3 (9.0-12.0) Seconds INR 1.1 (0.9-1.1) APTT 28.4 (21.0-31.0) Seconds PTT Ratio 1.0 Sodium 135 L (136-145) mmol/L Potassium 4.0 (3.5-5.1) mmol/L Chloride 102 (98-107) mmol/L Carbon Dioxide 29 (21-32) mmol/L Anion Gap 4.0 (3-11) BUN 10 (7-18) mg/dl Creatinine 0.96 (0.6-1.4) mg/dl Est Cr Clr Drug Dosing 117.8 ml/min Est GFR ( Amer) 111.0 Est GFR (Non-Af Amer) 95.7 BUN/Creatinine Ratio 10.4 (10-20) Glucose 105 H (70-99) mg/dl Lactate (0.4-2.0) mmol/L Calcium 9.4 (8.5-10.1) mg/dl Phosphorus 3.6 (2.5-4.9) mg/dl Magnesium 2.3 (1.8-2.4) mg/dl Total Bilirubin 0.6 (0.2-1) mg/dl AST 9 L (15-37) U/L ALT 28 (12-78) U/L Alkaline Phosphatase 193 H (45-117) U/L Total Protein 8.7 H (6.4-8.2) gm/dl Albumin 3.5 (3.4-5.0) gm/dl Globulin 5.2 H (2.5-4.0) gm/dl Albumin/Globulin Ratio 0.7 L (0.9-2) COVID-19 Eval Order SARS-CoV-2, RNA, NAAT (NEGATIVE) 03/25/20 03/25/20 03/25/20 Range/Units 12:02 14:31 14:31 WBC (4.8-10.8) K/uL RBC (4.7-6.1) M/uL Hgb (14.0-18.0) g/dL Hct (42-52) % MCV (80-100) fL MCH (25-34) pg MCHC (32-36) g/dL RDW Std Deviation (36.4-46.3) fL RDW Coeff of Dilan (11.5-14.5) % Plt Count (130-400) K/uL MPV (7.4-10.4) fL Immature Gran % (Auto) % Neut % (Auto) % Lymph % (Auto) % [place] % (Auto) % Eos % (Auto) % Baso % (Auto) % Neut # (Auto) (1.4-6.5) K/uL Lymph # (Auto) (1.2-3.4) K/uL [place] # (Auto) (0.11-0.59) K/uL Eos # (Auto) (0-0.5) K/uL Baso # (Auto) (0-0.2) K/uL Immature Gran # (Auto) (0.00-0.02) K/uL PT (9.0-12.0) Seconds INR (0.9-1.1) APTT (21.0-31.0) Seconds PTT Ratio Sodium (136-145) mmol/L Potassium (3.5-5.1) mmol/L Chloride (98-107) mmol/L Carbon Dioxide (21-32) mmol/L Anion Gap (3-11) BUN (7-18) mg/dl Creatinine (0.6-1.4) mg/dl Est Cr Clr Drug Dosing ml/min Est GFR ( Amer) Est GFR (Non-Af Amer) BUN/Creatinine Ratio (10-20) Glucose (70-99) mg/dl Lactate 0.8 (0.4-2.0) mmol/L Calcium (8.5-10.1) mg/dl Phosphorus (2.5-4.9) mg/dl Magnesium (1.8-2.4) mg/dl Total Bilirubin (0.2-1) mg/dl AST (15-37) U/L ALT (12-78) U/L Alkaline Phosphatase (45-117) U/L Total Protein (6.4-8.2) gm/dl Albumin (3.4-5.0) gm/dl Globulin (2.5-4.0) gm/dl Albumin/Globulin Ratio (0.9-2) COVID-19 Eval Order Covid19 [facility] SARS-CoV-2, RNA, NAAT NEGATIVE (NEGATIVE) Administered Medications Atorvastatin Calcium (Atorvastatin 40 Mg Tab) 80 mg PO HS JOVAN Stop: 04/24/20 20:59 Last Admin: 03/25/20 21:19 Dose: 80 mg Documented by: [id number] Famotidine (Famotidine 20 Mg Tab) 20 mg PO HS JOVAN Stop: 04/24/20 20:59 Last Admin: 03/25/20 21:19 Dose: 20 mg Documented by: [id number] Metoprolol Tartrate (Metoprolol Tartrate 25 Mg Tab) 12.5 mg PO BID JOVAN Stop: 04/24/20 20:59 Last Admin: 03/25/20 21:18 Dose: 12.5 mg Documented by: [id number] Pantoprazole Sodium (Pantoprazole 40 Mg Tab) 40 mg PO BID JOVAN Stop: 04/24/20 20:59 Last Admin: 03/25/20 21:18 Dose: 40 mg Documented by: [id number] Discontinued Medications Bacitracin (Bacitracin Inj 50,000 Unit Vial) Confirm Administered Dose 50,000 units .ROUTE .STK-MED ONE Stop: 03/25/20 15:41 Last Admin: 03/25/20 16:01 Dose: 50,000 units Documented by: [id number] Dexamethasone (Dexamethasone Sod Inj 10 Mg/Ml Vial) 10 mg IV NOW ONE Stop: 03/25/20 10:21 Last Admin: 03/25/20 11:32 Dose: 10 mg Documented by: [id number] Diphenhydramine HCl (Diphenhydramine 50 Mg/Ml Vial) 25 mg IV NOW STA Stop: 03/25/20 10:21 Last Admin: 03/25/20 11:32 Dose: 25 mg Documented by: [id number] Epinephrine HCl (Epinephrine Hcl Inj 1 Mg/Ml 1ml Syringe) Confirm Administered Dose 1 mg .ROUTE .STK-MED ONE Stop: 03/25/20 14:45 Last Admin: 03/25/20 16:01 Dose: 1 mg Documented by: [id number] Epinephrine HCl (Epinephrine Hcl Inj 1 Mg/Ml 1ml Syringe) Confirm Administered Dose 2 mg .ROUTE .STK-MED ONE Stop: 03/25/20 16:06 Last Admin: 03/25/20 16:12 Dose: 2 mg Documented by: [id number] Epinephrine HCl (Epinephrine Hcl Inj 1 Mg/Ml 1ml Syringe) Confirm Administered Dose 3 mg .ROUTE .STK-MED ONE Stop: 03/25/20 16:11 Last Admin: 03/25/20 16:12 Dose: 3 mg Documented by: [id number] Gelatin (Gelatin Sponge 12-7mm) Confirm Administered Dose 1 ea .ROUTE .STK-MED ONE Stop: 03/25/20 14:44 Last Admin: 03/25/20 16:59 Dose: Not Given Documented by: [id number] Sodium Chloride (Nss 1000ml) 2,000 mls @ 999 mls/hr IV .Q2H1M ONE Stop: 03/25/20 12:20 Last Infusion: 03/25/20 13:58 Dose: 0 mls/hr Documented by: [id number] Admin: 03/25/20 11:32 Dose: 999 mls/hr Documented by: [id number] Acetaminophen (Ofirmev) 1,000 mg in 100 mls @ 400 mls/hr IV NOW STA Stop: 03/25/20 10:34 Last Infusion: 03/25/20 11:56 Dose: 0 mls/hr Documented by: [id number] Admin: 03/25/20 11:32 Dose: 400 mls/hr Documented by: [id number] Ampicillin Sodium/Sulbactam Sodium 3,000 mg/ Sodium Chloride 108 mls @ 200 mls/hr IV NOW STA; Protocol Stop: 03/25/20 14:40 Last Infusion: 03/25/20 14:59 Dose: 0 mls/hr Documented by: [id number] Admin: 03/25/20 14:26 Dose: 200 mls/hr Documented by: [id number] Cefazolin Sodium (Ancef 2000mg) 2,000 mg in 15 mls @ 3.75 mls/min IV ONCE ONE Stop: 03/25/20 16:06 Last Admin: 03/25/20 16:06 Dose: 3.75 mls/min Documented by: [id number] Ioversol (Ioversol 100ml) 94 ml IV ONCE ONE Stop: 03/25/20 12:53 Last Admin: 03/25/20 12:52 Dose: 94 ml Documented by: [id number] Lidocaine HCl (Lidocaine 4% Inh Soln 4 Ml Btl) Confirm Administered Dose 4 ml .ROUTE .STK-MED ONE Stop: 03/25/20 14:44 Last Admin: 03/25/20 16:00 Dose: 4 ml Documented by: [id number] Lidocaine/Epinephrine (Lidocaine/Epine 2% 1:100,000 20ml) Confirm Administered Dose 20 ml .ROUTE .STK-MED ONE Stop: 03/25/20 14:43 Last Admin: 03/25/20 16:59 Dose: 2 ml Documented by: [id number] Metoclopramide HCl (Metoclopramide Hcl Inj 5 Mg/Ml 2 Ml Vial) 10 mg IV NOW STA Stop: 03/25/20 10:21 Last Admin: 03/25/20 11:32 Dose: 10 mg Documented by: [id number] Discharge Plan Visit Data Chief Complaint: Nasal Injury/Pain Stated Complaint: headache, fever, sinus pressure, hypertension ED Provider: Dennis Henderson Discharge Problem: Nasal septal abscess, Sinus headache, Fever Patient Disposition: Still a Patient Discharge Instructions Interventions: ED Discharge Assessment Last Done: 03/25/20 15:06 Discharge Problem: Fever Qualifiers: Fever type: unspecified Qualified Code(s): R50.9 - Fever, unspecified
[2020-03-25] MEDS ORDERED: diphenhydrAMINE 50 MG/ML VIAL IV STA (10:20)
[2020-03-25] MEDS ORDERED: SODIUM CHLORIDE 0.9% 1000ML 2,000 ML IV ONE (10:20)
[2020-03-25] MEDS ORDERED: DEXAMETHASONE SOD INJ 10 MG/ML VIAL IV ONE (10:20)
[2020-03-25] MEDS ORDERED: METOCLOPRAMIDE HCL INJ 5 MG/ML 2 ML VIAL IV STA (10:20)
[2020-03-25] MEDS ORDERED: ACETAMINOPHEN 1,000 MG/100 ML VIAL IV STA (10:20)
--- NOTE | 2020-03-25 11:02 | XRay Report ---
XR chest 1V portable HISTORY: SEPSIS COMPARISON: Chest 07/10/2014. FINDINGS: The lungs are clear. Cardiac silhouette is normal in size. No pleural effusions. No pneumot horax. IMPRESSION: No acute process. ACT 112: Negative or not required by law. Electronically signed by: Roberto Panchal M.D. 03/25/2020 11:01 AM
[2020-03-25 11:38] LABS: Basophils # (auto) 0.02 K/uL (0-0.2); Basophils % (auto) 0.3 %; Eosinophils # (auto) 0.04 K/uL (0-0.5); Eosinophils % (auto) 0.6 %; Hematocrit (blood only) 42.8 % (42-52); Hemoglobin 14.6 g/dL (14.0-18.0); Immature Granulocytes # (auto) 0.01 K/uL (0.00-0.02); Immature Granulocytes % (auto) 0.1 %; Lymphocytes # (auto) 1.15 K/uL (1.2-3.4); Lymphocytes % (auto) 16.4 %; Mean Corpuscular Hemoglobin 29.1 pg (25-34); Mean Corpuscular Hgb Conc 34.1 g/dL (32-36); Mean Corpuscular Volume 85.4 fL (80-100); Monocytes # (auto) 0.67 K/uL (0.11-0.59); Monocytes % (auto) 9.5 %; Neutrophils # (auto) 5.13 K/uL (1.4-6.5); Neutrophils % (auto) 73.1 %; Platelet Count 179 K/uL (130-400); RDW Coefficient of Variation 13.8 % (11.5-14.5); RDW Standard Deviation 43.3 fL (36.4-46.3); Red Blood Count 5.01 M/uL (4.7-6.1); White Blood Count 7.02 K/uL (4.8-10.8)
[2020-03-25 11:48] LABS: INR 1.1 (0.9-1.1); Partial Thromboplastin Time 28.4 Seconds (21.0-31.0); Prothrombin Time 11.3 Seconds (9.0-12.0)
[2020-03-25 11:58] LABS: Albumin Level 3.5 gm/dl (3.4-5.0); BUN Creatinine Ratio 10.4 (10-20); Calcium 9.4 mg/dl (8.5-10.1); Creatinine Clr Calc Pharmacy 117.8 ml/min; Est GFR (Non-African American) 95.7; Magnesium 2.3 mg/dl (1.8-2.4)
[2020-03-25 12:00] LABS: Albumin Globulin Ratio 0.7 (0.9-2); Bilirubin,Total 0.6 mg/dl (0.2-1); Globulin 5.2 gm/dl (2.5-4.0); Phosphorus 3.6 mg/dl (2.5-4.9); Total Protein 8.7 gm/dl (6.4-8.2)
[2020-03-25] MEDS ORDERED: IOVERSOL 100ml IV ONE (12:52)
--- NOTE | 2020-03-25 13:14 | CT Scan Report ---
CT sinus w con HISTORY: Headache, fever, 2 wks s/p sinus surgery TECHNIQUE: Multiaxial CT images of the sinuses were performed and reformatted in the sagittal and cor onal plane following the use of intravenous contrast. COMPARISON STUDY: Sinus CT 07/15/2019. FINDINGS: Near complete opacification of the right maxillary sinus and partial opacification of the l eft maxillary sinus with mucosal thickening and fluid levels. There is near complete opacification of the nasal cavity and moderate mucosal thickening of the ethmoid air cells with near complete opacifi cation. Moderate mucosal thickening within the sphenoid sinuses. There is a peripheral enhancing low density collection at the mid aspect of the nasal septum. This is best seen image 168 and measures 3. 6 x 2.1 cm. This could represent an abscess or less likely a septal hematoma. The orbits and pterygop alatine fossa are within normal limits. The nasal septum is fractured posteriorly. The mid nasal sept um is absent and completely replaced by the peripheral enhancing fluid collection. This could be due to postoperative change or erosion. The mastoid air cells are clear. Soft tissue swelling within the nose. IMPRESSION: 1. A large peripheral enhancing fluid collection within the mid nasal septum measuring 3.6 x 2.1 cm. This favors an abscess. A septal hematoma could also have a similar appearance. 2. Acute pansinusitis as described above. 3. The mid nasal septum is absent which could be postsurgical or due to erosion from the fluid collec tion. 4. Fracture through the posterior nasal septum. ACT 112: Negative or not required by law. Electronically signed by: Roberto Panchal M.D. 03/25/2020 1:12 PM
--- NOTE | 2020-03-25 13:22 | CT Scan Report ---
HEAD CT NONCONTRAST CT DOSE: HISTORY: Headache. Fever, 2 wks s/p sinus surgery TECHNIQUE: Multiaxial CT images of the head were performed without the use of intravenous contrast. A utomated exposure control was utilized for this study. A dose lowering technique was utilized adheri ng to the principles of ALARA. Comparison: Sinus CT 03/25/2020. Findings: Please refer to the same day sinus CT for further evaluation of the sinus abnormality. The calvarium and skull base are intact. The ventricles and sulci are within normal limits. There is no m ass, hematoma, midline shift, or acute infarct. Impression: No acute intracranial abnormality. Please refer to the same day sinus CT for further evaluation of th e sinus abnormalities. ACT 112: Negative or not required by law. Electronically signed by: Roberto Panchal M.D. 03/25/2020 1:21 PM
[2020-03-25] MEDS ORDERED: AMPICILLIN/SULBACTAM SOD 3,000 MG in 0.9 % SODIUM CHLORIDE 100 ML IV STA (14:08)
[2020-03-25] MEDS ORDERED: MIDAZOLAM HCL 1 MG/ML 2ML VIAL ONE (14:31)
[2020-03-25] MEDS ORDERED: fentaNYL citrate 100 MCG/2 ML VIAL ONE (14:31)
[2020-03-25] MEDS ORDERED: DEXAMETHASONE SOD INJ 4 MG/ML VIAL ONE (14:31)
[2020-03-25] MEDS ORDERED: PROPOFOL IV EMULSION 10 MG/ML 20 ML VIAL IV ONE (14:31)
[2020-03-25] MEDS ORDERED: ONDANSETRON INJ 2 MG/ML 2 ML VIAL ONE (14:31)
[2020-03-25] MEDS ORDERED: LIDOCAINE HCL 2% 2 ML VIAL/AMP(20MG/ML) INFIL ONE (14:31)
[2020-03-25] MEDS ORDERED: LIDOCAINE/EPINE 2% 1:100,000 20ML ONE (14:42)
[2020-03-25] MEDS ORDERED: GELATIN SPONGE 12-7MM ONE (14:43)
[2020-03-25] MEDS ORDERED: LIDOCAINE 4% INH SOLN 4 ML BTL ONE (14:43)
[2020-03-25] MEDS ORDERED: EpINEphrine HCL INJ 1 MG/ML 1ML SYRINGE ONE ×3 (14:44→16:10)
--- NOTE | 2020-03-25 15:13 | History & Physical Report ---
Date of Service March 25, 2020 Assessment & Plan (1) Nasal septal abscess: Will go to the OR for I&D by Dr Vega. Antibiotics - IV Cefazolin per ENT recommendations (2) CAD (coronary artery disease): Continue ASA, metoprolol, Atorvastatin (3) Hyperlipidemia: Atorvastatin 80mg PO daily (4) Gastroesophageal reflux: Switch omeprazole to pantoprazole per hospital formulary (5) Hypertension: Continue lisinopril 10mg PO QPM Admission and Anticipated Discharge Date Admission Date: 03/25/2020 History of Present Illness Chief Complaint: Nasal congestion, fever, chills Primary Care Provider: Gerri Brizuela MD Eliazar Rudolph is a 44 year old female who presents to the ER with fevers, ch ills, headache and nasal congestion. He has a recent history of septoplasty/endoscopic sinus surgery on March 09. He developed a fever with increased nasal congestion with bleeding 2 days ago. Fever max 102.5 yesterday. He was started on Augmentin by his ENT surgeon 2 days ago in the evening. Given fevers yesterday he called his ENT surgeon this morning and was advised to go to the ER. CT showed 3.6x2.1cm abscess. ER physician discussed case with Dr Vega and plan to go to surgery from the ER. Medicine consulted for admission. He denies any cough, loss of taste or smell or known COVID-19 exposure. Allergies Allergy/AdvReac Type Severity Reaction Status Date / Time meloxicam Allergy Severe severe rash Verified 03/25/20 10:51 Home Medications Home Medications Medication Instructions Recorded Confirmed Type aspirin 81 mg tablet,delayed 81 mg PO QAM 01/29/18 03/25/20 History release naproxen sodium 220 mg capsule 440 mg PO BID PRN cap 01/29/18 03/25/20 History cyclobenzaprine 5 mg tablet See Rx Instructions PO TID PRN #30 02/23/19 03/25/20 Rx tab famotidine 20 mg tablet 20 mg PO HS tab 07/06/19 03/25/20 History metoprolol tartrate 25 mg tablet 12.5 mg PO BID #90 tab 11/23/19 03/25/20 Rx omeprazole 20 mg tablet,delayed 20 mg PO BID #60 tab 12/13/19 03/25/20 Rx release ipratropium bromide 0.03 % nasal 2 spray INTRANASAL BID #30 ml 01/18/20 03/25/20 Rx spray hydrocodone-acetaminophen [[place]] 1 tab PO Q6H PRN #20 tab 03/09/20 03/25/20 Rx amoxicillin 875 mg-potassium 1 tab PO BID #20 tab 03/23/20 03/25/20 Rx clavulanate 125 mg tablet atorvastatin [Lipitor] 80 mg PO HS 03/25/20 03/25/20 History lisinopril 10 mg PO QAM 03/25/20 03/25/20 History loratadine [Claritin] 10 mg PO QAM 03/25/20 03/25/20 History Past Med/Surg History Medical History Arthritis CAD (coronary artery disease) Degenerative disc disease Gastroesophageal reflux Hyperlipidemia Hypertension Otalgia of both ears Surgical History History of cardiac cath NO STENTS History of esophagogastroduodenoscopy (EGD) Diamond teeth removed Family History Father Coronary heart disease Heart disease Hyperlipidemia Brother Coronary heart disease Hyperlipidemia Grandmother No problems noted. Mother Heart disease Diabetes Other Hypertension Denies family history of Prostate cancer Colorectal cancer Social History Smoking Status: Never smoker Second Hand Exposure: No; Do You Dip or Chew Tobacco: No; Hx Alcohol Use: No Hx Substance Use: No Preferred Language: Cambodian Communication Ability: Effective Visual Impairment: No Limitations Hearing Ability: Normal Circulation Manager Required: No Beliefs That Will Affect Care: None marital status: Single Current Living Situation: Family Current Living Situation Comment: 2 sisters. current occupational status: employed Other Information That Helps Us Care for You: No Feels Safe at Home: Yes Childhood Exposure to Second-Hand Smoke: No caffeine: Yes during the past year weight has: remained stable Dental Care, Regularly: Yes Physical Activity Frequency: Daily Physical Activity Frequency Comment: self employed, [employer] Seatbelt Use: always Assistive Devices: None Review of Systems Review of Systems: All systems reviewed & are unremarkable except as noted in HPI & below Physical Exam Constitutional: well developed and well nourished; no acute distress Eyes: + anicteric sclerae; normal pupil size Neck: trachea midline, no thyromegaly Respiratory: normal respiratory effort, lungs clear to auscultation Cardiovascular: RRR, no murmur, no edema Gastrointestinal (Abdomen): normal bowel sounds, soft, nontender, no hepatosplenomegaly Results & Data Results & Data ([facility]) Vital Signs (Past 12 Hours) Vital Signs Temp Pulse Pulse Resp BP BP Pulse Ox 03/25/20 15:04 78 20 139/82 95 03/25/20 14:00 76 14 129/88 98 03/25/20 13:30 82 15 130/82 03/25/20 12:30 69 14 131/91 99 03/25/20 12:00 69 17 137/89 97 03/25/20 11:24 80 18 131/87 96 03/25/20 09:27 36.7 C 82 20 161/96 H [address] NONCONTRAST Impression: No acute intracranial abnormality. Please refer to the same day sinus CT for further evaluation of the sinus abnormalities. CT sinus w con IMPRESSION: 1. A large peripheral enhancing fluid collection within the mid nasal septum measuring 3.6 x 2.1 cm. This favors an abscess. A septal hematoma could also have a similar appearance. 2. Acute pansinusitis as described above. 3. The mid nasal septum is absent which could be postsurgical or due to erosion from the fluid collection. 4. Fracture through the posterior nasal septum. XR chest 1V portable IMPRESSION: No acute process. ECG Indication: other (Pre-op) Rate (beats per minute): 74 Rhythm: normal sinus Findings: no acute ischemic change Comparison ECG Date: from (Mar 09, 2020) Change: no significant change Code Status & VTE Plan Code Status Full VTE Prophylaxis Plan VTE Prophylaxis will be ordered: No PG Care Time/CCT Total # of Minutes Spent Total Time Spent with Patient: Total time spent is greater than 50% in coordination of care (as documented) at patient's floor/unit and/or counseling patient: Coding Level of Care Code 02131 OBS Care - Level 2 Diagnoses Nasal septal abscess J34.0 CAD (coronary artery disease) I25.10 Hyperlipidemia E78.5 Gastroesophageal reflux K21.9 Esophagitis presence: esophagitis presence not specified Hypertension I10 (1) Gastroesophageal reflux Esophagitis presence: esophagitis presence not specified Qualified Code(s): K21.9 - Gastro-esophageal reflux disease without esophagitis
--- NOTE | 2020-03-25 15:23 | Anesthesiology Consultation ---
Date of Service March 25, 2020 Assessment & Plan Chart Review Chart Review: Acceptable Risk for Surgery Consults Requested none History Surgery Operation Date: 03/25/20 14:30 Proposed Procedures p Endoscopic Sinus Surgery - Yue Vega MD Height/Weight Height: 5 ft 11 in Weight: 99 kg Allergies Allergy/AdvReac Type Severity Reaction Status Date / Time meloxicam Allergy Severe severe rash Verified 03/25/20 10:51 Medications Home Medications Medication Instructions Recorded Confirmed Last Taken aspirin 81 mg tablet,delayed 81 mg PO QAM 01/29/18 03/25/20 03/25/20 release naproxen sodium 220 mg capsule 440 mg PO BID PRN cap 01/29/18 03/25/20 02/29/20 cyclobenzaprine 5 mg tablet See Rx Instructions PO TID PRN #30 02/23/19 03/25/20 Unknown tab famotidine 20 mg tablet 20 mg PO HS tab 07/06/19 03/25/20 03/24/20 metoprolol tartrate 25 mg tablet 12.5 mg PO BID #90 tab 11/23/19 03/25/20 03/25/20 omeprazole 20 mg tablet,delayed 20 mg PO BID #60 tab 12/13/19 03/25/20 03/25/20 release ipratropium bromide 0.03 % nasal 2 spray INTRANASAL BID #30 ml 01/18/20 03/25/20 03/24/20 spray hydrocodone-acetaminophen [[place]] 1 tab PO Q6H PRN #20 tab 03/09/20 03/25/20 Unknown amoxicillin 875 mg-potassium 1 tab PO BID #20 tab 03/23/20 03/25/20 03/25/20 clavulanate 125 mg tablet atorvastatin [Lipitor] 80 mg PO HS 03/25/20 03/25/20 03/24/20 lisinopril 10 mg PO QAM 03/25/20 03/25/20 03/25/20 loratadine [Claritin] 10 mg PO QAM 03/25/20 03/25/20 03/25/20 NPO Date Last Intake of Fluids: 03/25/20 Time Last Intake of Fluids: 08:00 Date Last Intake of Solids: 03/25/20 Time Last Intake of Solids: 08:00 Past Medical History Medical History Arthritis CAD (coronary artery disease) Degenerative disc disease Gastroesophageal reflux Hyperlipidemia Hypertension Otalgia of both ears Past Family History Family History Father Coronary heart disease Heart disease Hyperlipidemia Brother Coronary heart disease Hyperlipidemia Grandmother No problems noted. Mother Heart disease Diabetes Other Hypertension Denies family history of Prostate cancer Colorectal cancer Past Surgical History Surgical History History of cardiac cath NO STENTS History of esophagogastroduodenoscopy (EGD) [place] teeth removed Social History Smoking Status: Never smoker Hx Alcohol Use: No Hx Substance Use: No substance use type: does not use Physical Exam Vital Signs Last Vital Signs Temp 36.7 C 03/25/20 09:27 Pulse 78 03/25/20 15:04 Resp 20 03/25/20 15:04 BP 139/82 03/25/20 15:04 Pulse Ox 95 03/25/20 15:04 Testing Laboratory Results 03/25/20 11:29 03/25/20 11:29 PT 11.3 Seconds (9.0-12.0) 03/25/20 11:29 INR 1.1 (0.9-1.1) 03/25/20 11:29 APTT 28.4 Seconds (21.0-31.0) 03/25/20 11:29
[2020-03-25] MEDS ORDERED: fentaNYL citrate 100 MCG/2 ML VIAL IV PRN (15:27)
[2020-03-25] MEDS ORDERED: ePHEDrine sulfate 50 MG/ML AMP IV PRN (15:27)
[2020-03-25] MEDS ORDERED: DEXAMETHASONE SOD INJ 4 MG/ML VIAL IV PRN (15:27)
[2020-03-25] MEDS ORDERED: HYDROmorphone INJ 2 MG/ML SYR/VIAL IV PRN (15:27)
[2020-03-25] MEDS ORDERED: ATROPINE SULFATE 0.1 MG/ML 10ML SYR IV PRN (15:27)
[2020-03-25] MEDS ORDERED: METOCLOPRAMIDE HCL INJ 5 MG/ML 2 ML VIAL IV PRN (15:27)
[2020-03-25] MEDS ORDERED: ONDANSETRON INJ 2 MG/ML 2 ML VIAL IV PRN ×2 (15:27→18:55)
[2020-03-25] MEDS ORDERED: BACITRACIN INJ 50,000 UNIT VIAL ONE (15:40)
[2020-03-25] MEDS ORDERED: ceFAZolin 2000MG 2,000 MG/15 ML SYR IV ONE (16:03)
[2020-03-25] MEDS ORDERED: HYDROmorphone INJ 2 MG/ML SYR/VIAL ONE (16:15)
--- NOTE | 2020-03-25 17:29 | Operative Report ---
PG Post Operative Report Pre & Post Diagnosis Operation Date: 03/25/20 14:30 Pre-Op Diagnosis: nasal septal abscess Post-Op Diagnosis: nasal septal abscess I identified the patient and participated in the time-out.: Yes Procedure Operation Date: 03/25/20 14:30 Actual Procedures p Endoscopic Sinus Surgery, Incision and Drainage of septal hematoma, Deborah ridement of nasal passages(Not Applicable) - Yue Vega MD Surgeon Yue Vega MD Geosciences Faculty Member None none Estimated Blood Loss 40 Findings Consistent with Post-Op Diagnosis Specimens Culture Anesthesia Type General Complications none Disposition Accompanied Patient To Recovery: Yes Disposition: Surgical ICU Indications 44-year-old status post septoplasty and endoscopic sinus surgery by me on March 09 developed acute fever and found to have septal hematoma/abscess Description of Procedure I attest to the content of the Intraoperative Record and any orders documented therein. Any exceptions are noted below.
--- NOTE | 2020-03-25 17:42 | Operative Report ---
PG Post Operative Report Pre & Post Diagnosis Operation Date: 03/25/20 14:30 Pre-Op Diagnosis: nasal septal abscess Post-Op Diagnosis: nasal septal abscess I identified the patient and participated in the time-out.: Yes Procedure Operation Date: 03/25/20 14:30 Actual Procedures p Endoscopic Sinus Surgery, Incision and Drainage of septal hematoma, Deborah ridement of nasal passages(Not Applicable) - Yue Vega MD Surgeon Yue Vega MD Rn Oncology Research None none Estimated Blood Loss 40 Findings Consistent with Post-Op Diagnosis Specimens Culture septal abscess Anesthesia Type General Complications none Disposition Accompanied Patient To Recovery: Yes Disposition: Surgical ICU Indications 44-year-old status post septoplasty/FESS March 09 developed nasal congestion and fever yesterday and admitted for septal hematoma/abscess Description of Procedure He was brought to the operating room, properly identified, prepped with Betadine paint and draped in the usual sterile manner after general anesthesia with LMA. The nose was decongested using topical cottonoids with a solution of 4 cc of 4% Xylocaine with 1 cc of epinephrine. Injection of 2% Xylocaine with 1-1000 strength epinephrine was also used. The septum was wide anterior superiorly. I&D was performed using the 15 blade and the abscess cavity was cultured and then suction cleaned of pus and then irrigated with bacitracin solution. Attention was turned to the ethmoid cavities which were decongested using cottonoids with epinephrine and then cleaned of residual stents and residual blood clots. An angled suction device was used to evacuate the maxillary sinuses. Attention was returned to the septum. A drain hole was made posteriorly. And the septum was sewn anteriorly using continuous mattress suture of 4-0 plain gut. Because of the drain hole posteriorly no packing was placed. He tolerated the procedure well and was taken recovery area in satisfactory condition. I attest to the content of the Intraoperative Record and any orders documented therein. Any exceptions are noted below.
--- NOTE | 2020-03-25 17:44 | Anesthesiology Progress Note ---
Date of Service March 25, 2020 Anesthesia Post Procedure Vital Signs Vital Signs: Temp Pulse Pulse Resp BP BP BP 03/25/20 17:40 86 18 140/84 03/25/20 17:30 91 H 15 156/97 H 03/25/20 17:20 85 19 156/97 H 03/25/20 17:12 36.3 C L 89 18 157/91 H 03/25/20 15:04 78 20 139/82 03/25/20 14:00 76 14 129/88 03/25/20 13:30 82 15 130/82 03/25/20 12:30 69 14 131/91 03/25/20 12:00 69 17 137/89 03/25/20 11:24 80 18 131/87 03/25/20 09:27 36.7 C 82 20 161/96 H Pulse Ox 03/25/20 17:40 94 03/25/20 17:30 100 03/25/20 17:20 100 03/25/20 17:12 96 03/25/20 15:04 95 03/25/20 14:00 98 03/25/20 13:30 03/25/20 12:30 99 03/25/20 12:00 97 03/25/20 11:24 96 03/25/20 09:27 97 Pain Intensity Nose: Pain Intensity: 3 Transfer of Care Handoff Completed per policy Notes Mental Status: alert / awake / arousable and participated in evaluation Patient Amnestic to Procedure: Yes Nausea / Vomiting: adequately controlled Pain: adequately controlled Airway Patency, RR, SpO2: stable & adequate BP & HR: stable & adequate Hydration State: stable & adequate Anesthetic Complications: no major complications apparent
[2020-03-25] MEDS ORDERED: INFLUENZA VIRUS QUAD VACCINE 0.5 ML SYR IM ONE (18:22)
[2020-03-25] MEDS ORDERED: INFLUENZA ADMINISTRATION CHARGE ONE (18:22)
[2020-03-25] MEDS ORDERED: CYCLOBENZAPRINE HCL 5 MG TAB PO PRN (18:49)
[2020-03-25] MEDS ORDERED: HYDROCODONE/ACETAMOPHEN 5/325MG TAB PO PRN (18:53)
[2020-03-25] MEDS ORDERED: ACETAMINOPHEN 325 MG TAB PO PRN (18:55)
[2020-03-25] MEDS ORDERED: ALUMINUM/MAGNESIUM SUSP 30 ML UDC PO PRN (18:56)
[2020-03-25] MEDS ORDERED: FAMOTIDINE 20 MG TAB PO SCH (21:00)
[2020-03-25] MEDS ORDERED: ATORVASTATIN 40 MG TAB PO SCH (21:00)
[2020-03-25] MEDS: PANTOprazole 40 MG TAB PO SCH (21:18)
[2020-03-25] MEDS: METOPROLOL TARTRATE 25 MG TAB PO SCH (21:18)
[2020-03-25] MEDS: ceFAZolin 2000MG 2,000 MG/15 ML SYR IV SCH (23:26)
[2020-03-26 00:18] LABS: Appearance Urine Clear (Clear); Bacteria Urine Automated Negative (Negative); Bilirubin Urine Negative (Negative); Blood Urine Negative (Negative); Cast Urine Automated 0 /lpf (0-5); Color Urine Yellow; Epithelial Cell Urine Auto 0-5 /lpf (0-5); Glucose Urine UA Trace (Negative); Ketones Urine Negative (Negative); Leukocyte Esterase Urine Negative (Negative); Nitrite Urine Negative (Negative); Protein Urine 1+ (Negative); RBC Urine Automated 0-4 /hpf (0-4); Specific Gravity Urine 1.021 (1.000-1.030); Urobilinogen Urine Negative (Negative); WBC Urine Automated 0 /hpf (0-5); pH Urine 6.5 (4.5-7.5)
--- NOTE | 2020-03-26 06:50 | Electrocardiogram Report ---
Test Reason : Blood Pressure : / mmHG Vent. Rate : 074 BPM Atrial Rate : 074 BPM P-R Int : 128 ms QRS Dur : 090 ms QT Int : 374 ms P-R-T Axes : 019 004 016 degrees QTc Int : 415 ms Poor data quality, interpretation may be adversely affected Normal sinus rhythm Normal ECG When compared with ECG of 09-MAR-2020 10:50, No significant change was found Confirmed by Greyson Recinos ([id number]) on 03/26/2020 6:50:02 AM Referred By: REFERRED SELF Confirmed By:Greyson Recinos
[2020-03-26] MEDS: ceFAZolin 2000MG 2,000 MG/15 ML SYR IV SCH (07:38)
[2020-03-26] MEDS: PANTOprazole 40 MG TAB PO SCH (08:11)
[2020-03-26] MEDS: METOPROLOL TARTRATE 25 MG TAB PO SCH (08:11)
[2020-03-26] MEDS ORDERED: LORATADINE 10 MG TAB PO SCH (09:00)
[2020-03-26] MEDS ORDERED: ASPIRIN 81 MG ECTAB PO SCH (09:00)
[2020-03-26] MEDS ORDERED: lisinopril 10 MG TAB PO SCH (09:00)
--- NOTE | 2020-03-26 12:04 | Ears,Nose,Throat Progress Note ---
Date of Service March 26, 2020 Assessment & Plan (1) Nasal septal abscess: No sign of abcess now, feels improved, afebrile. Will discharge, keep on augmentin, saline rinse, recheck with me in one week. Admission and Anticipated Discharge Date Admission Date: March 25, 2020 Subjective Feels improved, not much pain, able to breath Physical Exam Constitutional: WD/WN, vitals as above Eyes: PERRL, conjunctivae normal, anicteric sclerae ENMT: Nose: + nasal mucous membrane abnormality (less swollen) and + septum abnormality (able to see both sides, able to feel both sides of septum, no sign of abces) Neck: trachea midline, no thyromegaly Respiratory: normal respiratory effort, lungs clear to auscultation Results & Data ([facility]) Vital Signs (Past 12 Hours) Vital Signs Temp Pulse Resp BP Pulse Ox 03/26/20 07:04 36.5 C 79 18 143/91 H 95 03/26/20 02:52 36.8 C 73 16 122/83 93
--- NOTE | 2020-03-26 14:58 | Discharge Summary ---
Date of Service March 26, 2020 Admission HPI Per Admitting Provider Eliazar Rudolph is a 44 year old female who presents to the ER with fevers, chills, headache and nasal congestion. He has a recent history of septoplasty/endoscopic sinus surgery on March 09. He developed a fever with increased nasal congestion with bleeding 2 days ago. Fever max 102.5 yesterday. He was started on Augmentin by his ENT surgeon 2 days ago in the evening. Given fevers yesterday he called his ENT surgeon this morning and was advised to go to the ER. CT showed 3.6x2.1cm abscess. ER physician discussed case with Dr Vega and plan to go to surgery from the ER. Medicine consulted for admission. He denies any cough, loss of taste or smell or known COVID-19 exposure. Principal Diagnosis Nasal septal abscess Discharge Exam Constitutional WD/WN, vitals as above Eyes PERRL, conjunctivae normal, anicteric sclerae ENMT Ears: no external ear abnormality Nose: no external nose abnormality, no turbinate abnormality, no sinus tenderness, no nasal polyps and no facial edema Mouth: no oropharynx abnormality Neck trachea midline, no thyromegaly Respiratory normal respiratory effort, lungs clear to auscultation Cardiovascular RRR, no murmur, no edema Gastrointestinal (Abdomen) normal bowel sounds, soft, nontender, no hepatosplenomegaly Musculoskeletal no cyanosis or clubbing, extremities motor strength 5/5 Skin no rashes, warm and dry Neurologic patellar DTR's 2+ bilat, sensation intact and PERRL, EOMI, accommodation nl, no face palsy, no dysarthria Psychiatric A+Ox3, euthymic affect Discharge Data Allergies Allergy/AdvReac Type Severity Reaction Status Date / Time meloxicam Allergy Severe severe rash Verified 03/25/20 10:51 Consultations 03/25/20 14:08 ED Decision to Admit Stat 03/25/20 22:08 Consult Otolaryngology (Head and Neck) Routine Procedures Performed Operation Date: 03/25/20 14:30 Actual Procedures p Endoscopic Sinus Surgery, Incision and Drainage of septal hematoma, Debridement of nasal passages(Not Applicable) - Yue Vega MD Ordered Studies 03/25/20 10:15 CT head/brain wo con Stat CT sinus w con Stat Hospital Course (1) Nasal septal abscess: incision and drainage of abscess on 03/[address] Vega he left a large hole in posterior septum as a drainage area patient feels a great deal better, no fever/chills, far less pain, able to blow his nose nasal culture with staph species and gram negative bacilli (likely anaerobes) discussed with rachelle Ga to send home on Augmentin instructed to follow up with Dr. Vega, call if he has any further issues (2) CAD (coronary artery disease): Continue ASA, metoprolol, Atorvastatin (3) Hyperlipidemia: Atorvastatin 80mg PO daily (4) Gastroesophageal reflux: Switch omeprazole to pantoprazole per hospital formulary (5) Hypertension: Continue lisinopril 10mg PO QPM Total Time Total Time Spent Total Time Spent (In Minutes): 26 Total Time Includes: Examination of the Patient, Discharge Planning, Medication Reconciliation and Communication With Other Providers Discharge Plan Discharge Items Patient Disposition: Home - Self-Care Reason For Visit: SEPTAL ABSCESS Discharge Diagnosis: Septal abscess s/p incision and drainage Condition on Discharge: Good Activity: Resume your previous activity Non-emergency contact: Surgeon Call non-emergency contact if: you have any medication questions, your symptoms worsen and you have a fever Follow-up/Referrals: Gerri Brizuela MD [Primary Care Provider] - Yue Vega MD [Physician] - (2 weeks) Diet: Heart Healthy Addtl Attending Provider Instructions: Medications: - AUGMENTIN: complete the course that was prescribed by Dr. Vega on Friday Septal abscess, hematoma successful drainage and debridement on 03/25 clear to go home by Dr. Vega complete the course of Augmentin that was prescribed, take all the pills, start tonight for twice a day dosing take hot showers with steam to open up sinuses you are okay to blow your nose and clear your nose as needed Pending Studies at Discharge: Yes Studies:: nasal cultures Stand-Alone Forms: My [employer], Smoking Cessation Medications and DC Order Prescriptions: Continued aspirin [Adult Aspirin Regimen] 81 mg tablet,delayed release (DR/EC) 81 mg PO QAM RF: 0 naproxen sodium [Aleve] 220 mg capsule 440 mg PO BID PRN (Reason: Pain) RF: 0 metoprolol tartrate 25 mg tablet 12.5 mg PO BID Qty: 90 RF: 3 amoxicillin-pot clavulanate [Augmentin] 875-125 mg tablet 1 tab PO BID Qty: 20 RF: 1 omeprazole 20 mg tablet,delayed release (DR/EC) 20 mg PO BID Qty: 60 RF: 2 ipratropium bromide 0.03 % spray,non-aerosol 2 spray intranasal BID Qty: 30 RF: 2 cyclobenzaprine 5 mg tablet See Rx Instructions PO TID PRN (Reason: muscle spasm) Qty: 30 RF: 0 famotidine 20 mg tablet 20 mg PO HS RF: 0 hydrocodone-acetaminophen [[place]] 5-325 mg tablet 1 tab PO Q6H PRN (Reason: pain) Qty: 20 RF: 0 atorvastatin [Lipitor] 80 mg tablet 80 mg PO HS RF: 0 lisinopril 10 mg tablet 10 mg PO QAM RF: 0 loratadine [Claritin] 10 mg tablet 10 mg PO QAM RF: 0 Discharge Orders: Discharge Order (Routine); Ordered 03/26/20 Ordered By: Irvin Goff Admission Data Admit Date/Time: 03/25/20 17:35 Attending Provider: Irvin Goff Admit Provider: Yue Vega Primary Care Provider: Gerri Brizuela Other Providers: Issac Davis Yi How Other Interventions: Discharge Summary Assessment (RN) Last Done: 03/26/20 12:26 Coding Level of Care Code 41462 OBS Care - Discharge Diagnoses Nasal septal abscess J34.0 CAD (coronary artery disease) I25.10 Hyperlipidemia E78.5 Gastroesophageal reflux K21.9 Esophagitis presence: esophagitis presence not specified Hypertension I10
== END 2020-03-26 13:34 | disposition home or self-care (01) ==
LOC: ED 09:24 → ASU 15:06 → 3E 15:06 → SUATTDRO 17:35